=== PATIENT | female | born 1970 | race Caucasian/White ===

== ENCOUNTER 2018-11-28 15:13 | Emergency (ER) | payer SELFPAY ==
[~2018-11-28] VITALS: Ht 162.6 cm; Wt 61.2 kg
--- NOTE | 2018-11-28 15:25 | NUR ---
[place] [age] YEAR OLD FEMALE [employer] SLEEPING IN HER CAR. ADMITS TO ETOH AND AMBIEN USE DENIES SI/HI/ ALERT AND ORIENTED X3, BREATHING EVEN AND UNLABORED. SKIN INTACT. WAITING TO BE SEEN BY
[2018-11-28] MEDS ORDERED: IV NS 0.9% 1,000 ML BAG IV ONE (15:30)
[2018-11-28 15:49] LABS: BASOPHILS % (AUTO) 0.9 % (0.0-2.0); HEMATOCRIT 39 % (33-45); HEMOGLOBIN 13.1 g/dL (11.5-14.8); LYMPHOCYTES # (AUTO) 2.7 /CMM (0.8-4.8); LYMPHOCYTES % (AUTO) 53.8 % (20.0-44.0); MEAN CORPUSCULAR HGB CONC 34 g/dl (31.0-36.0); MEAN CORPUSCULAR VOLUME 94 fL (82-100); MONOCYTES # (AUTO) 0.3 /CMM (0.1-1.30); MONOCYTES % (AUTO) 6.7 % (2.0-12.0); NEUTROPHILS # (AUTO) 1.9 /CMM (1.8-8.9); NEUTROPHILS % (AUTO) 37.6 % (43.0-81.0); PLATELET COUNT (AUTO) 272 /CMM (150-450); RED BLOOD CELL COUNT(AUTO) 4.11 MIL/uL (4.0-5.2)
[2018-11-28 15:53] LABS: CALCIUM, SERUM 8.8 mg/dL (8.5-10.1); CARBON DIOXIDE 28 mmol/L (21-32); CHLORIDE 104 mmol/L (98-107); CREATININE 0.8 mg/dL (0.6-1.3); GLUCOSE 87 mg/dL (74-106); POTASSIUM 4.1 mmol/L (3.5-5.1); SODIUM SERUM 142 mmol/L (136-145); UREA NITROGEN, BLOOD 10 mg/dL (7-18)
[2018-11-28 15:59] LABS: ALANINE AMINOTRANSFERASE 28 U/L (12-78); ALBUMIN 4.1 g/dL (3.4-5.0); ALCOHOL, BLOOD 260 mg/dL (0-0); ALKALINE PHOSPHATASE 78 U/L (46-116); ASPARTATE AMINOTRANSFERASE 32 U/L (15-37); BILIRUBIN,DIRECT 0.1 mg/dL (0.0-0.2); BILIRUBIN,TOTAL 0.4 mg/dL (0.2-1.0); TOTAL PROTEIN, SERUM 7.2 g/dL (6.4-8.2)
[2018-11-28 16:00] LABS: ACETAMINOPHEN < 2 ug/ml (10-30); SALICYLATE < 2.8 mg/dL (2.8-20.0)
--- NOTE | 2018-11-28 16:01 | NUR ---
URINE COLLECTED AND SENT TO LAB
[2018-11-28 16:10] LABS: BILIRUBIN,URINE Negative (NEGATIVE); BLOOD, URINE Small Ery/uL (NEGATIVE); COLOR,URINE Yellow (YELLOW); KETONES,URINE Negative (NEGATIVE); LEUKOCYTE ESTERASE ,URINE Trace (NEGATIVE); NITRITE, URINE Negative (NEGATIVE); PROTEIN,URINE Negative (NEGATIVE); UGLUCOSE Negative (NEGATIVE); UROBILINOGEN,URINE 0.2 EU/dL (0.2)
[2018-11-28 16:15] LABS: APPEARANCE,URINE HAZY (CLEAR)
[2018-11-28 16:18] LABS: BACTERIA,URINE Few /HPF (None Seen); SQUAMOUS EPITHELIAL CELL,UR Few /HPF (None Seen)
[2018-11-28 17:09] LABS: LYMPHOCYTES % (MANUAL) 54 % (16-48); MONOCYTES % (MANUAL) 2 % (0-11.0); NEUTROPHILS % (MANUAL) 44 (42-76)
--- NOTE | 2018-11-28 17:16 | NUR ---
PATIENT ASLEEP IN STABLE CONDITION VS WNLS
--- NOTE | 2018-11-28 18:33 | NUR ---
DINNER GIVEN TO PATIENT
--- NOTE | 2018-11-28 22:20 | NUR ---
AMBULATION TESTED, PT GAIT STILL UNSTEADY AND WOBBLY.
--- NOTE | 2018-11-29 02:57 | NUR ---
PT IN BED SLEEPING NAD NOTED.
--- NOTE | 2018-11-29 05:34 | NUR ---
PT AMBULATED AROUND UNIT. AMBULATED WELL ON STEADY GAIT W/O ASSIST. AWARE
--- NOTE | 2018-11-29 05:34 | NUR ---
Patient discharged to home in stable condition. Written and verbal after care instructions given. Patient verbalizes understanding of instruction.IV removed. Catheter intact and site benign. Pressure and 4x4 applied to site. No bleeding noted. Pt ambulatory with a steady gait
[2018-11-29 05:35] VITALS: BP 93/50
== END 2018-11-29 05:35 | disposition home or self-care (01) ==
LOC: ER 15:18
DX: F32.9 Major depressive disorder, single episode, unspecified (principal); F10.10 Alcohol abuse, uncomplicated; F41.0 Panic disorder [episodic paroxysmal anxiety]; E86.0 Dehydration; F13.10 Sedative, hypnotic or anxiolytic abuse, uncomplicated; Y90.8 Blood alcohol level of 240 mg/100 ml or more
CPT/HCPCS: 36415; 80048; 80076; 80305; 80307; 80329; 81001; 84702; 85025; 96360; 99284; G0480; J7030; 81000-TC